=== PATIENT | male | born 1940 | race Caucasian/White ===

== ENCOUNTER 2021-04-06 15:03 | Inpatient (IN) | payer MEDICARE ==
[2021-04-06 15:29] VITALS: BMI 30.4
[2021-04-06] MEDS ORDERED: levETIRAcetam 250 MG TAB PO SCH (21:00)
[2021-04-06 21:55] LABS: SARS-CoV-2 NAA Rapid Test Not Detected (NotDetected)
[2021-04-06] MEDS: Midodrine HCl 5 MG TAB PO SCH (22:08)
[2021-04-06] MEDS: Atorvastatin Calcium 10 MG TAB PO SCH (22:09)
[2021-04-07] MEDS: Potassium Chloride 10 MEQ TAB PO SCH (09:12)
[2021-04-07] MEDS: Nicotine 14 MG PATCH TD SCH (09:13)
[2021-04-07] MEDS: Midodrine HCl 5 MG TAB PO SCH ×3 (09:13→21:36)
[2021-04-07] MEDS: Lidocaine 5% Patch TD SCH (09:13)
[2021-04-07] MEDS: Lisinopril 20 MG TAB PO SCH (15:21)
[2021-04-07] MEDS: Acetaminophen 500 MG TAB PO PRN (15:51)
[2021-04-07] MEDS: Tamsulosin HCl 0.4 MG CAP PO SCH (17:39)
[2021-04-07] MEDS: Atorvastatin Calcium 10 MG TAB PO SCH (21:37)
[2021-04-07] MEDS: Transdermal Patch Removal TOP SCH (21:52)
[2021-04-08] MEDS: Potassium Chloride 10 MEQ TAB PO SCH (08:59)
[2021-04-08] MEDS: Acetaminophen 500 MG TAB PO PRN (08:59)
[2021-04-08] MEDS: Lidocaine 5% Patch TD SCH (09:00)
[2021-04-08] MEDS: Nicotine 14 MG PATCH TD SCH (09:00)
[2021-04-08] MEDS: Midodrine HCl 5 MG TAB PO SCH ×3 (09:15→20:39)
[2021-04-08] MEDS: Lisinopril 20 MG TAB PO SCH (17:57)
[2021-04-08] MEDS: Tamsulosin HCl 0.4 MG CAP PO SCH (18:34)
[2021-04-08] MEDS: Atorvastatin Calcium 10 MG TAB PO SCH (20:31)
[2021-04-08] MEDS: Transdermal Patch Removal TOP SCH (20:32)
[2021-04-09] MEDS: Acetaminophen 500 MG TAB PO PRN (04:19)
[2021-04-09] MEDS: Lidocaine 5% Patch TD SCH (08:46)
[2021-04-09] MEDS: Nicotine 14 MG PATCH TD SCH (08:46)
[2021-04-09] MEDS ORDERED: Lisinopril 10 MG TAB PO SCH (09:00)
[2021-04-09] MEDS: Potassium Chloride 10 MEQ TAB PO SCH (11:31)
[2021-04-09] MEDS: Midodrine HCl 5 MG TAB PO SCH ×3 (11:32→21:12)
[2021-04-09] MEDS: Tamsulosin HCl 0.4 MG CAP PO SCH (18:03)
[2021-04-09] MEDS: oxyCODONE 5 MG TAB PO PRN (21:12)
[2021-04-09] MEDS: Transdermal Patch Removal TOP SCH (21:15)
[2021-04-10] MEDS: Potassium Chloride 10 MEQ TAB PO SCH (09:06)
[2021-04-10] MEDS: Midodrine HCl 5 MG TAB PO SCH ×3 (09:06→21:07)
[2021-04-10] MEDS: Aspirin 81 mg Enteric Coated Tablet PO SCH (09:06)
[2021-04-10] MEDS: Lidocaine 5% Patch TD SCH (09:07)
[2021-04-10] MEDS: Nicotine 14 MG PATCH TD SCH (09:07)
[2021-04-10] MEDS: Tamsulosin HCl 0.4 MG CAP PO SCH (17:46)
[2021-04-10] MEDS: Transdermal Patch Removal TOP SCH (21:07)
[2021-04-11] MEDS: Midodrine HCl 5 MG TAB PO SCH ×3 (10:00→21:23)
[2021-04-11] MEDS: Aspirin 81 mg Enteric Coated Tablet PO SCH (10:00)
[2021-04-11] MEDS: Nicotine 14 MG PATCH TD SCH (10:00)
[2021-04-11] MEDS: Lidocaine 5% Patch TD SCH (10:01)
[2021-04-11] MEDS: Potassium Chloride 10 MEQ TAB PO SCH (10:01)
[2021-04-11] MEDS: Tamsulosin HCl 0.4 MG CAP PO SCH (17:53)
[2021-04-11] MEDS: Transdermal Patch Removal TOP SCH (21:23)
[2021-04-12] MEDS: oxyCODONE 5 MG TAB PO PRN (06:26)
[2021-04-12] MEDS: Nicotine 14 MG PATCH TD SCH (08:58)
[2021-04-12] MEDS: Potassium Chloride 10 MEQ TAB PO SCH (08:58)
[2021-04-12] MEDS: Lidocaine 5% Patch TD SCH (08:58)
[2021-04-12] MEDS: Aspirin 81 mg Enteric Coated Tablet PO SCH (08:59)
[2021-04-12] MEDS: Midodrine HCl 5 MG TAB PO SCH ×3 (08:59→20:34)
[2021-04-12] MEDS: Tamsulosin HCl 0.4 MG CAP PO SCH (17:03)
[2021-04-12] MEDS: Transdermal Patch Removal TOP SCH (20:35)
[2021-04-12] MEDS: hydrOXYzine 25 MG TAB PO SCH (20:35)
[2021-04-13] MEDS: Midodrine HCl 5 MG TAB PO SCH ×3 (08:51→20:57)
[2021-04-13] MEDS: Aspirin 81 mg Enteric Coated Tablet PO SCH (08:52)
[2021-04-13] MEDS: Nicotine 14 MG PATCH TD SCH (08:52)
[2021-04-13] MEDS: Potassium Chloride 10 MEQ TAB PO SCH (08:52)
[2021-04-13] MEDS: Lidocaine 5% Patch TD SCH (08:52)
[2021-04-13] MEDS: Tamsulosin HCl 0.4 MG CAP PO SCH (18:00)
[2021-04-13] MEDS: hydrOXYzine 25 MG TAB PO SCH (20:57)
[2021-04-13] MEDS: Transdermal Patch Removal TOP SCH (21:07)
[2021-04-14 01:21] LABS: SARS-CoV-2 PCR by NAA Not Detected (NotDetected)
[2021-04-14] MEDS: oxyCODONE 5 MG TAB PO PRN ×2 (04:49→20:38)
[2021-04-14] MEDS: Midodrine HCl 5 MG TAB PO SCH ×3 (08:44→20:30)
[2021-04-14] MEDS: Potassium Chloride 10 MEQ TAB PO SCH (08:44)
[2021-04-14] MEDS: Aspirin 81 mg Enteric Coated Tablet PO SCH (08:45)
[2021-04-14] MEDS: Nicotine 14 MG PATCH TD SCH (08:45)
[2021-04-14] MEDS: Lidocaine 5% Patch TD SCH (08:45)
[2021-04-14] MEDS: Tamsulosin HCl 0.4 MG CAP PO SCH (18:45)
[2021-04-14] MEDS: hydrOXYzine 25 MG TAB PO SCH (20:31)
[2021-04-14] MEDS: Transdermal Patch Removal TOP SCH (20:31)
[2021-04-15] MEDS: Potassium Chloride 10 MEQ TAB PO SCH (08:52)
[2021-04-15] MEDS: Lidocaine 5% Patch TD SCH (08:52)
[2021-04-15] MEDS: Midodrine HCl 5 MG TAB PO SCH ×3 (08:52→20:23)
[2021-04-15] MEDS: Aspirin 81 mg Enteric Coated Tablet PO SCH (08:52)
[2021-04-15] MEDS: Nicotine 14 MG PATCH TD SCH (08:53)
[2021-04-15] MEDS: Acetaminophen 500 MG TAB PO PRN (08:56)
[2021-04-15 10:52] LABS: #Basophils 0.1 thou/uL (0.0-0.2); #Eosinphils 0.1 thou/uL (0.0-0.7); #Lymphocytes 2.8 thou/uL (1.20-3.40); #Monocytes 1.1 thou/uL (0.11-0.59); #Neutrophils 4.5 thou/uL (1.40-6.50); %Basophils 0.9 % (0.0-1.0); %Eosinophils 1.6 % (0.0-10.0); %Lymphocytes 33.1 % (21.0-51.0); %Monocytes 12.6 % (0.0-10.0); %Neutrophils 51.8 % (42.0-75.0); Hemoglobin 13.7 g/dL (14.0-18.0); Mean Corpuscular HGB CONC 32.7 g/dL (32.0-36.0); Mean Corpuscular Hemoglobin 30.4 pg (27.0-31.0); Mean Corpuscular Volume 93.2 fL (78.0-98.0); Mean Platelet Volume 8.5 fL (7.4-10.4); Platelet Count 202 thou/uL (130-400); RBC Distribution Width 14.6 % (11.5-14.5); Red Blood Cell (RBC) Count 4.49 mill/uL (4.70-6.10); White Blood Cell (WBC) Count 8.6 thou/uL (4.8-10.8)
[2021-04-15 11:05] LABS: ALT (SGPT) 15 U/L (8-55); AST (SGOT) 16 U/L (5-34); Albumin 3.5 g/dL (3.4-4.8); Alkaline Phosphatase 68 U/L (40-110); Anion Gap 16 mmol/L (10-20); BUN (Urea Nitrogen) 24 mg/dL (8.4-25.7); Bilirubin, Total 0.4 mg/dL (0.2-1.2); Calc. Creatinine Clearance 69 mL/min (70-130); Calcium 9.5 mg/dL (7.8-10.44); Carbon Dioxide 25 mmol/L (23-31); Chloride 102 mmol/L (98-107); Globulin 3.2 g/dL (2.4-3.5); Glucose 103 mg/dL (83-110); Potassium 4.1 mmol/L (3.5-5.1); Protein, Total 6.7 g/dL (5.8-8.1); Sodium 139 mmol/L (136-145)
[2021-04-15] MEDS: Tamsulosin HCl 0.4 MG CAP PO SCH (17:51)
[2021-04-15] MEDS: traZODone HCl 50 MG TAB PO SCH (20:22)
[2021-04-15] MEDS: hydrOXYzine 25 MG TAB PO SCH (20:23)
[2021-04-15] MEDS: Transdermal Patch Removal TOP SCH (20:29)
[2021-04-16] MEDS: Midodrine HCl 5 MG TAB PO SCH ×3 (08:36→20:14)
[2021-04-16] MEDS: Nicotine 14 MG PATCH TD SCH (08:36)
[2021-04-16] MEDS: Lidocaine 5% Patch TD SCH (08:36)
[2021-04-16] MEDS: Potassium Chloride 10 MEQ TAB PO SCH (08:37)
[2021-04-16] MEDS: Aspirin 81 mg Enteric Coated Tablet PO SCH (08:37)
[2021-04-16] MEDS: Acetaminophen 500 MG TAB PO PRN (08:40)
[2021-04-16] MEDS: Polyethylene Glycol 3350 17 GM Packet PO PRN (09:53)
[2021-04-16] MEDS: Tamsulosin HCl 0.4 MG CAP PO SCH (18:00)
[2021-04-16] MEDS: traZODone HCl 50 MG TAB PO SCH (20:14)
[2021-04-16] MEDS: hydrOXYzine 25 MG TAB PO SCH (20:14)
[2021-04-16] MEDS: Transdermal Patch Removal TOP SCH (20:22)
[2021-04-17] MEDS: Acetaminophen 500 MG TAB PO PRN ×2 (08:22→20:40)
[2021-04-17] MEDS: Nicotine 14 MG PATCH TD SCH (08:24)
[2021-04-17] MEDS: Aspirin 81 mg Enteric Coated Tablet PO SCH (08:24)
[2021-04-17] MEDS: Potassium Chloride 10 MEQ TAB PO SCH (08:24)
[2021-04-17] MEDS: Midodrine HCl 5 MG TAB PO SCH ×3 (08:24→20:40)
[2021-04-17] MEDS: Lidocaine 5% Patch TD SCH (08:25)
[2021-04-17] MEDS: Tamsulosin HCl 0.4 MG CAP PO SCH (17:28)
[2021-04-17] MEDS: traZODone HCl 50 MG TAB PO SCH (20:39)
[2021-04-17] MEDS: hydrOXYzine 25 MG TAB PO SCH (20:40)
[2021-04-17] MEDS: Transdermal Patch Removal TOP SCH (20:46)
[2021-04-18] MEDS: Midodrine HCl 5 MG TAB PO SCH ×3 (08:26→21:44)
[2021-04-18] MEDS: Potassium Chloride 10 MEQ TAB PO SCH (08:26)
[2021-04-18] MEDS: Aspirin 81 mg Enteric Coated Tablet PO SCH (08:26)
[2021-04-18] MEDS: Lidocaine 5% Patch TD SCH (08:26)
[2021-04-18] MEDS: Acetaminophen 500 MG TAB PO PRN (08:33)
[2021-04-18] MEDS: Nicotine 14 MG PATCH TD SCH (08:36)
[2021-04-18] MEDS: Tamsulosin HCl 0.4 MG CAP PO SCH (18:36)
[2021-04-18] MEDS: hydrOXYzine 25 MG TAB PO SCH (21:44)
[2021-04-18] MEDS: Transdermal Patch Removal TOP SCH (21:45)
[2021-04-18] MEDS: traZODone HCl 50 MG TAB PO SCH (21:45)
[2021-04-19] MEDS: Acetaminophen 500 MG TAB PO PRN (02:35)
[2021-04-19] MEDS: oxyCODONE 5 MG TAB PO PRN (08:25)
[2021-04-19] MEDS: Polyethylene Glycol 3350 17 GM Packet PO PRN (08:27)
[2021-04-19] MEDS: Lidocaine 5% Patch TD SCH (08:27)
[2021-04-19] MEDS: Midodrine HCl 5 MG TAB PO SCH ×3 (08:29→21:58)
[2021-04-19] MEDS: Aspirin 81 mg Enteric Coated Tablet PO SCH (08:30)
[2021-04-19] MEDS: Potassium Chloride 10 MEQ TAB PO SCH (08:30)
[2021-04-19] MEDS: Nicotine 14 MG PATCH TD SCH (08:31)
[2021-04-19] MEDS: Tamsulosin HCl 0.4 MG CAP PO SCH (17:31)
[2021-04-19] MEDS: traZODone HCl 50 MG TAB PO SCH (21:58)
[2021-04-19] MEDS: hydrOXYzine 25 MG TAB PO SCH (21:58)
[2021-04-19] MEDS: Transdermal Patch Removal TOP SCH (21:59)
[2021-04-20] MEDS: Potassium Chloride 10 MEQ TAB PO SCH (09:08)
[2021-04-20] MEDS: Lidocaine 5% Patch TD SCH (09:08)
[2021-04-20] MEDS: Nicotine 14 MG PATCH TD SCH (09:08)
[2021-04-20] MEDS: Acetaminophen 500 MG TAB PO PRN ×2 (09:09→19:33)
[2021-04-20] MEDS: Aspirin 81 mg Enteric Coated Tablet PO SCH (09:09)
[2021-04-20] MEDS: Midodrine HCl 5 MG TAB PO SCH ×3 (09:09→21:24)
[2021-04-20] MEDS: Polyethylene Glycol 3350 17 GM Packet PO PRN (09:16)
[2021-04-20] MEDS: Tamsulosin HCl 0.4 MG CAP PO SCH (17:46)
[2021-04-20] MEDS: hydrOXYzine 25 MG TAB PO SCH (21:25)
[2021-04-20] MEDS: Transdermal Patch Removal TOP SCH (21:25)
[2021-04-20] MEDS: traZODone HCl 50 MG TAB PO SCH (21:25)
[2021-04-21] MEDS: Lidocaine 5% Patch TD SCH (08:40)
[2021-04-21] MEDS: Midodrine HCl 5 MG TAB PO SCH ×3 (08:40→21:35)
[2021-04-21] MEDS: Potassium Chloride 10 MEQ TAB PO SCH (08:40)
[2021-04-21] MEDS: Aspirin 81 mg Enteric Coated Tablet PO SCH (08:40)
[2021-04-21] MEDS: Nicotine 14 MG PATCH TD SCH (08:40)
[2021-04-21] MEDS: Acetaminophen 500 MG TAB PO PRN (08:44)
[2021-04-21] MEDS: Tamsulosin HCl 0.4 MG CAP PO SCH (18:42)
[2021-04-21] MEDS: traZODone HCl 50 MG TAB PO SCH (21:35)
[2021-04-21] MEDS: Transdermal Patch Removal TOP SCH (21:35)
[2021-04-21] MEDS: hydrOXYzine 25 MG TAB PO SCH (21:35)
[2021-04-22] MEDS: Midodrine HCl 5 MG TAB PO SCH ×3 (09:30→20:26)
[2021-04-22] MEDS: Aspirin 81 mg Enteric Coated Tablet PO SCH (09:30)
[2021-04-22] MEDS: Potassium Chloride 10 MEQ TAB PO SCH (09:30)
[2021-04-22] MEDS: Lidocaine 5% Patch TD SCH (09:30)
[2021-04-22] MEDS: Nicotine 14 MG PATCH TD SCH (09:31)
[2021-04-22 16:00] LABS: SARS-CoV-2 PCR by NAA Not Detected (NotDetected)
[2021-04-22] MEDS: Tamsulosin HCl 0.4 MG CAP PO SCH (17:42)
[2021-04-22] MEDS: hydrOXYzine 25 MG TAB PO SCH (20:26)
[2021-04-22] MEDS: traZODone HCl 50 MG TAB PO SCH (20:26)
[2021-04-22] MEDS: Transdermal Patch Removal TOP SCH (20:38)
[2021-04-23] MEDS: Acetaminophen 500 MG TAB PO PRN ×2 (01:12→10:02)
[2021-04-23] MEDS: Nicotine 14 MG PATCH TD SCH (08:56)
[2021-04-23] MEDS: Lidocaine 5% Patch TD SCH (08:56)
[2021-04-23] MEDS: Aspirin 81 mg Enteric Coated Tablet PO SCH (08:56)
[2021-04-23] MEDS: Midodrine HCl 5 MG TAB PO SCH ×3 (08:57→21:30)
[2021-04-23] MEDS: Potassium Chloride 10 MEQ TAB PO SCH (08:57)
[2021-04-23] MEDS: Tamsulosin HCl 0.4 MG CAP PO SCH (17:59)
[2021-04-23] MEDS: traZODone HCl 50 MG TAB PO SCH (21:29)
[2021-04-23] MEDS: hydrOXYzine 25 MG TAB PO SCH (21:29)
[2021-04-23] MEDS: Transdermal Patch Removal TOP SCH (21:30)
[2021-04-24] MEDS: Acetaminophen 500 MG TAB PO PRN ×2 (01:42→09:22)
[2021-04-24] MEDS: Aspirin 81 mg Enteric Coated Tablet PO SCH (09:21)
[2021-04-24] MEDS: Potassium Chloride 10 MEQ TAB PO SCH (09:22)
[2021-04-24] MEDS: Midodrine HCl 5 MG TAB PO SCH ×3 (09:23→21:27)
[2021-04-24] MEDS: Lidocaine 5% Patch TD SCH (09:23)
[2021-04-24] MEDS: Nicotine 14 MG PATCH TD SCH (09:23)
[2021-04-24] MEDS: Tamsulosin HCl 0.4 MG CAP PO SCH (17:31)
[2021-04-24] MEDS: traZODone HCl 50 MG TAB PO SCH (21:26)
[2021-04-24] MEDS: Transdermal Patch Removal TOP SCH (21:27)
[2021-04-24] MEDS: hydrOXYzine 25 MG TAB PO SCH (21:27)
[2021-04-25] MEDS: Aspirin 81 mg Enteric Coated Tablet PO SCH (09:16)
[2021-04-25] MEDS: Potassium Chloride 10 MEQ TAB PO SCH (09:16)
[2021-04-25] MEDS: Midodrine HCl 5 MG TAB PO SCH ×3 (09:16→21:06)
[2021-04-25] MEDS: Lidocaine 5% Patch TD SCH (09:17)
[2021-04-25] MEDS: Nicotine 14 MG PATCH TD SCH (09:17)
[2021-04-25] MEDS: Tamsulosin HCl 0.4 MG CAP PO SCH (18:17)
[2021-04-25] MEDS: traZODone HCl 50 MG TAB PO SCH (21:06)
[2021-04-25] MEDS: Transdermal Patch Removal TOP SCH (21:07)
[2021-04-25] MEDS: hydrOXYzine 25 MG TAB PO SCH (21:07)
[2021-04-26] MEDS: Loratadine 10 MG TAB PO SCH (09:06)
[2021-04-26] MEDS: Midodrine HCl 5 MG TAB PO SCH ×3 (09:06→21:21)
[2021-04-26] MEDS: Potassium Chloride 10 MEQ TAB PO SCH (09:06)
[2021-04-26] MEDS: Nicotine 14 MG PATCH TD SCH (09:07)
[2021-04-26] MEDS: Lidocaine 5% Patch TD SCH (09:07)
[2021-04-26] MEDS: Aspirin 81 mg Enteric Coated Tablet PO SCH (09:07)
[2021-04-26] MEDS: Acetaminophen 500 MG TAB PO PRN (15:40)
[2021-04-26] MEDS: Tamsulosin HCl 0.4 MG CAP PO SCH (17:51)
[2021-04-26] MEDS: hydrOXYzine 25 MG TAB PO SCH (21:21)
[2021-04-26] MEDS: traZODone HCl 50 MG TAB PO SCH (21:21)
[2021-04-26] MEDS: Transdermal Patch Removal TOP SCH (21:21)
[2021-04-27] MEDS: Nicotine 14 MG PATCH TD SCH (08:28)
[2021-04-27] MEDS: Aspirin 81 mg Enteric Coated Tablet PO SCH (08:28)
[2021-04-27] MEDS: Potassium Chloride 10 MEQ TAB PO SCH (08:28)
[2021-04-27] MEDS: Lidocaine 5% Patch TD SCH (08:29)
[2021-04-27] MEDS: Loratadine 10 MG TAB PO SCH (08:29)
[2021-04-27] MEDS: Midodrine HCl 5 MG TAB PO SCH ×3 (08:29→21:11)
[2021-04-27] MEDS: Tamsulosin HCl 0.4 MG CAP PO SCH (17:16)
[2021-04-27] MEDS: hydrOXYzine 25 MG TAB PO SCH (21:11)
[2021-04-27] MEDS: traZODone HCl 50 MG TAB PO SCH (21:11)
[2021-04-27] MEDS: Transdermal Patch Removal TOP SCH (21:11)
[2021-04-28] MEDS: Potassium Chloride 10 MEQ TAB PO SCH (08:21)
[2021-04-28] MEDS: Loratadine 10 MG TAB PO SCH (08:22)
[2021-04-28] MEDS: Aspirin 81 mg Enteric Coated Tablet PO SCH (08:22)
[2021-04-28] MEDS: Nicotine 14 MG PATCH TD SCH (08:22)
[2021-04-28] MEDS: Lidocaine 5% Patch TD SCH (08:22)
[2021-04-28] MEDS: Midodrine HCl 5 MG TAB PO SCH ×3 (08:22→20:13)
[2021-04-28] MEDS: Acetaminophen 500 MG TAB PO PRN (12:16)
[2021-04-28] MEDS: Tamsulosin HCl 0.4 MG CAP PO SCH (17:28)
[2021-04-28] MEDS: hydrOXYzine 25 MG TAB PO SCH (20:13)
[2021-04-28] MEDS: traZODone HCl 50 MG TAB PO SCH (20:13)
[2021-04-28] MEDS: Transdermal Patch Removal TOP SCH (20:15)
[2021-04-29] MEDS: Aspirin 81 mg Enteric Coated Tablet PO SCH (08:26)
[2021-04-29] MEDS: Lidocaine 5% Patch TD SCH (08:27)
[2021-04-29] MEDS: Nicotine 14 MG PATCH TD SCH (08:27)
[2021-04-29] MEDS: Loratadine 10 MG TAB PO SCH (08:27)
[2021-04-29] MEDS: Potassium Chloride 10 MEQ TAB PO SCH (08:27)
[2021-04-29] MEDS: Midodrine HCl 5 MG TAB PO SCH ×3 (08:27→22:27)
[2021-04-29] MEDS: Tamsulosin HCl 0.4 MG CAP PO SCH (17:22)
[2021-04-29] MEDS: traZODone HCl 50 MG TAB PO SCH (22:27)
[2021-04-29] MEDS: hydrOXYzine 25 MG TAB PO SCH (22:27)
[2021-04-29] MEDS: Transdermal Patch Removal TOP SCH (22:28)
[2021-04-30] MEDS: Potassium Chloride 10 MEQ TAB PO SCH (08:45)
[2021-04-30] MEDS: Nicotine 14 MG PATCH TD SCH (08:45)
[2021-04-30] MEDS: Midodrine HCl 5 MG TAB PO SCH ×3 (08:45→21:08)
[2021-04-30] MEDS: Lidocaine 5% Patch TD SCH (08:45)
[2021-04-30] MEDS: Aspirin 81 mg Enteric Coated Tablet PO SCH (08:45)
[2021-04-30] MEDS: Loratadine 10 MG TAB PO SCH (08:45)
[2021-04-30] MEDS: Tamsulosin HCl 0.4 MG CAP PO SCH (17:29)
[2021-04-30] MEDS: traZODone HCl 50 MG TAB PO SCH (21:09)
[2021-04-30] MEDS: Transdermal Patch Removal TOP SCH (21:09)
[2021-04-30] MEDS: hydrOXYzine 25 MG TAB PO SCH (21:09)
[2021-05-01] MEDS: Nicotine 14 MG PATCH TD SCH (09:36)
[2021-05-01] MEDS: Lidocaine 5% Patch TD SCH (09:36)
[2021-05-01] MEDS: Aspirin 81 mg Enteric Coated Tablet PO SCH (09:37)
[2021-05-01] MEDS: Midodrine HCl 5 MG TAB PO SCH ×3 (09:37→21:02)
[2021-05-01] MEDS: Potassium Chloride 10 MEQ TAB PO SCH (09:37)
[2021-05-01] MEDS: Loratadine 10 MG TAB PO SCH (09:38)
[2021-05-01] MEDS: Tamsulosin HCl 0.4 MG CAP PO SCH (18:21)
[2021-05-01 19:50] LABS: SARS-CoV-2 PCR by NAA Not Detected (NotDetected)
[2021-05-01] MEDS: hydrOXYzine 25 MG TAB PO SCH (21:02)
[2021-05-01] MEDS: traZODone HCl 50 MG TAB PO SCH (21:02)
[2021-05-01] MEDS: Transdermal Patch Removal TOP SCH (23:12)
[2021-05-02] MEDS: Potassium Chloride 10 MEQ TAB PO SCH (09:06)
[2021-05-02] MEDS: Lidocaine 5% Patch TD SCH (09:07)
[2021-05-02] MEDS: Aspirin 81 mg Enteric Coated Tablet PO SCH (09:07)
[2021-05-02] MEDS: Midodrine HCl 5 MG TAB PO SCH ×3 (09:07→21:00)
[2021-05-02] MEDS: Nicotine 14 MG PATCH TD SCH (09:07)
[2021-05-02] MEDS: Loratadine 10 MG TAB PO SCH (09:07)
[2021-05-02] MEDS: Tamsulosin HCl 0.4 MG CAP PO SCH (18:48)
[2021-05-02] MEDS: traZODone HCl 50 MG TAB PO SCH (21:00)
[2021-05-02] MEDS: hydrOXYzine 25 MG TAB PO SCH (21:00)
[2021-05-02] MEDS: Transdermal Patch Removal TOP SCH (21:01)
[2021-05-02] MEDS: Acetaminophen 500 MG TAB PO PRN (21:16)
[2021-05-03] MEDS: Midodrine HCl 5 MG TAB PO SCH ×3 (08:38→20:26)
[2021-05-03] MEDS: Aspirin 81 mg Enteric Coated Tablet PO SCH (08:38)
[2021-05-03] MEDS: Lidocaine 5% Patch TD SCH (08:38)
[2021-05-03] MEDS: Potassium Chloride 10 MEQ TAB PO SCH (08:39)
[2021-05-03] MEDS: Nicotine 14 MG PATCH TD SCH (08:39)
[2021-05-03] MEDS: Tamsulosin HCl 0.4 MG CAP PO SCH (18:00)
[2021-05-03] MEDS: hydrOXYzine 25 MG TAB PO SCH (20:18)
[2021-05-03] MEDS: traZODone HCl 50 MG TAB PO SCH (20:18)
[2021-05-03] MEDS: Transdermal Patch Removal TOP SCH (20:18)
[2021-05-04] MEDS: Aspirin 81 mg Enteric Coated Tablet PO SCH (08:30)
[2021-05-04] MEDS: Potassium Chloride 10 MEQ TAB PO SCH (08:30)
[2021-05-04] MEDS: Lidocaine 5% Patch TD SCH (08:30)
[2021-05-04] MEDS: Midodrine HCl 5 MG TAB PO SCH ×3 (08:30→21:29)
[2021-05-04] MEDS: Nicotine 14 MG PATCH TD SCH (08:30)
[2021-05-04] MEDS: Acetaminophen 500 MG TAB PO PRN (08:47)
[2021-05-04] MEDS: Tamsulosin HCl 0.4 MG CAP PO SCH (18:04)
[2021-05-04] MEDS: traZODone HCl 50 MG TAB PO SCH (21:24)
[2021-05-04] MEDS: hydrOXYzine 25 MG TAB PO SCH (21:24)
[2021-05-04] MEDS: Transdermal Patch Removal TOP SCH (21:29)
[2021-05-05] MEDS: Lidocaine 5% Patch TD SCH (09:54)
[2021-05-05] MEDS: Nicotine 14 MG PATCH TD SCH (09:54)
[2021-05-05] MEDS: Aspirin 81 mg Enteric Coated Tablet PO SCH (09:54)
[2021-05-05] MEDS: Midodrine HCl 5 MG TAB PO SCH ×3 (09:54→22:00)
[2021-05-05] MEDS: Potassium Chloride 10 MEQ TAB PO SCH (09:55)
[2021-05-05] MEDS: Tamsulosin HCl 0.4 MG CAP PO SCH (17:54)
[2021-05-05] MEDS: hydrOXYzine 25 MG TAB PO SCH (21:59)
[2021-05-05] MEDS: traZODone HCl 50 MG TAB PO SCH (22:00)
[2021-05-05] MEDS: Transdermal Patch Removal TOP SCH (22:03)
[2021-05-06] MEDS: Potassium Chloride 10 MEQ TAB PO SCH (08:47)
[2021-05-06] MEDS: Lidocaine 5% Patch TD SCH (08:47)
[2021-05-06] MEDS: Aspirin 81 mg Enteric Coated Tablet PO SCH (08:47)
[2021-05-06] MEDS: Nicotine 14 MG PATCH TD SCH (08:47)
[2021-05-06] MEDS: Midodrine HCl 5 MG TAB PO SCH ×3 (09:37→22:05)
[2021-05-06] MEDS: Tamsulosin HCl 0.4 MG CAP PO SCH (18:39)
[2021-05-06] MEDS: hydrOXYzine 25 MG TAB PO SCH (22:05)
[2021-05-06] MEDS: traZODone HCl 50 MG TAB PO SCH (22:05)
[2021-05-06] MEDS: Transdermal Patch Removal TOP SCH (22:06)
[2021-05-07] MEDS: Aspirin 81 mg Enteric Coated Tablet PO SCH (09:37)
[2021-05-07] MEDS: Potassium Chloride 10 MEQ TAB PO SCH (09:37)
[2021-05-07] MEDS: Fludrocortisone Acetate 0.1 MG TAB PO SCH (09:37)
[2021-05-07] MEDS: Midodrine HCl 5 MG TAB PO SCH ×3 (09:37→23:06)
[2021-05-07] MEDS: Lidocaine 5% Patch TD SCH (09:37)
[2021-05-07] MEDS: Nicotine 14 MG PATCH TD SCH (09:37)
[2021-05-07] MEDS: Tamsulosin HCl 0.4 MG CAP PO SCH (17:33)
[2021-05-07] MEDS: traZODone HCl 50 MG TAB PO SCH (23:07)
[2021-05-07] MEDS: hydrOXYzine 25 MG TAB PO SCH (23:07)
[2021-05-07] MEDS: Transdermal Patch Removal TOP SCH (23:07)
[2021-05-08] MEDS: Acetaminophen 500 MG TAB PO PRN (09:36)
[2021-05-08] MEDS: Midodrine HCl 5 MG TAB PO SCH ×3 (09:37→22:13)
[2021-05-08] MEDS: Potassium Chloride 10 MEQ TAB PO SCH (09:37)
[2021-05-08] MEDS: Fludrocortisone Acetate 0.1 MG TAB PO SCH (09:38)
[2021-05-08] MEDS: Lidocaine 5% Patch TD SCH (09:38)
[2021-05-08] MEDS: Aspirin 81 mg Enteric Coated Tablet PO SCH (09:38)
[2021-05-08] MEDS: Nicotine 14 MG PATCH TD SCH (09:38)
[2021-05-08] MEDS: Tamsulosin HCl 0.4 MG CAP PO SCH (18:50)
[2021-05-08] MEDS: hydrOXYzine 25 MG TAB PO SCH (22:14)
[2021-05-08] MEDS: Transdermal Patch Removal TOP SCH (22:15)
[2021-05-08] MEDS: traZODone HCl 50 MG TAB PO SCH (22:16)
[2021-05-09] MEDS: Midodrine HCl 5 MG TAB PO SCH ×3 (09:39→20:37)
[2021-05-09] MEDS: Aspirin 81 mg Enteric Coated Tablet PO SCH (09:39)
[2021-05-09] MEDS: Fludrocortisone Acetate 0.1 MG TAB PO SCH (09:39)
[2021-05-09] MEDS: Nicotine 14 MG PATCH TD SCH (09:40)
[2021-05-09] MEDS: Potassium Chloride 10 MEQ TAB PO SCH (09:40)
[2021-05-09] MEDS: Lidocaine 5% Patch TD SCH (09:40)
[2021-05-09] MEDS: Tamsulosin HCl 0.4 MG CAP PO SCH (18:47)
[2021-05-09] MEDS ORDERED: traMADol HCl 50 MG TAB PO PRN (19:22)
[2021-05-09] MEDS: traZODone HCl 50 MG TAB PO SCH (20:37)
[2021-05-09] MEDS: hydrOXYzine 25 MG TAB PO SCH (20:37)
[2021-05-09] MEDS: Transdermal Patch Removal TOP SCH (20:39)
[2021-05-10] MEDS: Aspirin 81 mg Enteric Coated Tablet PO SCH (08:32)
[2021-05-10] MEDS: Acetaminophen 500 MG TAB PO PRN (08:32)
[2021-05-10] MEDS: Fludrocortisone Acetate 0.1 MG TAB PO SCH (08:32)
[2021-05-10] MEDS: Midodrine HCl 5 MG TAB PO SCH ×3 (08:32→21:06)
[2021-05-10] MEDS: Potassium Chloride 10 MEQ TAB PO SCH (08:32)
[2021-05-10] MEDS: Nicotine 14 MG PATCH TD SCH (08:33)
[2021-05-10] MEDS: Lidocaine 5% Patch TD SCH (08:33)
[2021-05-10] MEDS: Tamsulosin HCl 0.4 MG CAP PO SCH (17:42)
[2021-05-10] MEDS: Transdermal Patch Removal TOP SCH (21:06)
[2021-05-10] MEDS: hydrOXYzine 25 MG TAB PO SCH (21:06)
[2021-05-10] MEDS: traZODone HCl 50 MG TAB PO SCH (21:06)
[2021-05-11 05:52] VITALS: TEMP 97.6
[2021-05-11] MEDS: Lidocaine 5% Patch TD SCH (08:21)
[2021-05-11] MEDS: Aspirin 81 mg Enteric Coated Tablet PO SCH (08:21)
[2021-05-11] MEDS: Nicotine 14 MG PATCH TD SCH (08:21)
[2021-05-11] MEDS: Potassium Chloride 10 MEQ TAB PO SCH (08:21)
[2021-05-11] MEDS: Fludrocortisone Acetate 0.1 MG TAB PO SCH (08:25)
[2021-05-11] MEDS: Midodrine HCl 5 MG TAB PO SCH (08:25)
[2021-05-11 08:27] VITALS: BP 132/79
== END 2021-05-11 10:42 | DRG 561 ==
LOC: BURMED 15:03
PROVIDERS: ADMIT Family Medicine; ATTEND Family Medicine
DX: S22.028D Other fracture of second thoracic vertebra, subsequent encounter for fracture with routine healing (principal); R53.1 Weakness; I10 Essential (primary) hypertension; M54.9 Dorsalgia, unspecified; E78.5 Hyperlipidemia, unspecified; N40.0 Benign prostatic hyperplasia without lower urinary tract symptoms; G89.29 Other chronic pain; S00.412A Abrasion of left ear, initial encounter; W19.XXXD Unspecified fall, subsequent encounter; Z20.822 Contact with and (suspected) exposure to COVID-19; I95.9 Hypotension, unspecified; R00.1 Bradycardia, unspecified; S12.110D Anterior displaced Type II dens fracture, subsequent encounter for fracture with routine healing; Z98.890 Other specified postprocedural states; Z87.891 Personal history of nicotine dependence; Z79.899 Other long term (current) drug therapy
CPT/HCPCS: 36415; 36416; 72040; 72125; 72128; 80053; 84484; 85025; U0002; U0003; U0005

== ENCOUNTER 2021-06-29 14:48 | Emergency (ER) | payer MEDICARE ==
[2021-06-29 15:42] LABS: #Basophils 0.1 thou/uL (0.0-0.2); #Eosinphils 0.2 thou/uL (0.0-0.7); #Lymphocytes 1.5 thou/uL (1.20-3.40); #Monocytes 0.4 thou/uL (0.11-0.59); #Neutrophils 2.7 thou/uL (1.40-6.50); %Basophils 1.4 % (0.0-1.0); %Eosinophils 3.3 % (0.0-10.0); %Lymphocytes 31.2 % (21.0-51.0); %Monocytes 8.3 % (0.0-10.0); %Neutrophils 55.9 % (42.0-75.0); Hemoglobin 10.8 g/dL (14.0-18.0); Mean Corpuscular HGB CONC 32.3 g/dL (32.0-36.0); Mean Corpuscular Hemoglobin 30.5 pg (27.0-31.0); Mean Corpuscular Volume 94.6 fL (78.0-98.0); Mean Platelet Volume 8.2 fL (7.4-10.4); Platelet Count 212 thou/uL (130-400); RBC Distribution Width 14.3 % (11.5-14.5); Red Blood Cell (RBC) Count 3.55 mill/uL (4.70-6.10); White Blood Cell (WBC) Count 4.9 thou/uL (4.8-10.8)
[2021-06-29 15:49] LABS: Bilirubin Negative (Negative); Blood, Urine Negative (Negative); Clarity Cloudy (Clear); Glucose, Urine (Dipstick) Negative (Negative); Ketone, Urine Negative (Negative); Leukocyte Negative (Negative); Nitrite Negative (Negative); Protein, Urine (Dipstick) Negative (Neg-Trace); pH, Urine 7.5 (5.0-9.0)
[2021-06-29 15:56] LABS: ALT (SGPT) Less than 7 U/L (8-55); AST (SGOT) 10 U/L (5-34); Albumin 3.3 g/dL (3.4-4.8); Alkaline Phosphatase 71 U/L (40-110); Anion Gap 12 mmol/L (10-20); BUN (Urea Nitrogen) 14 mg/dL (8.4-25.7); Bilirubin, Total 0.3 mg/dL (0.2-1.2); Calc. Creatinine Clearance 0 mL/min (70-130); Calcium 9.2 mg/dL (7.8-10.44); Carbon Dioxide 26 mmol/L (23-31); Chloride 107 mmol/L (98-107); Globulin 2.7 g/dL (2.4-3.5); Glucose 113 mg/dL (83-110); Magnesium 2.2 mg/dL (1.6-2.6); Potassium 3.9 mmol/L (3.5-5.1); Sodium 141 mmol/L (136-145)
== END 2021-06-29 16:32 ==
LOC: BURERS 14:48
DX: R41.0 Disorientation, unspecified (principal); I95.9 Hypotension, unspecified; E78.5 Hyperlipidemia, unspecified; Z79.899 Other long term (current) drug therapy; Z87.891 Personal history of nicotine dependence
CPT/HCPCS: 36415; 51701; 70450; 71045; 72125; 80053; 81003; 83605; 83735; 84443; 84484; 85025; 87040; 93005; 94760

== ENCOUNTER 2021-06-30 05:23 | Emergency (ER) | payer MEDICARE | END 2021-06-30 06:08 | LOC: BURERS 05:23 | DX: S30.0XXA Contusion of lower back and pelvis, initial encounter (principal); S40.022A Contusion of left upper arm, initial encounter; Z79.899 Other long term (current) drug therapy; I95.9 Hypotension, unspecified; E87.1 Hypo-osmolality and hyponatremia; E78.5 Hyperlipidemia, unspecified; Z87.891 Personal history of nicotine dependence; W18.30XA Fall on same level, unspecified, initial encounter | CPT/HCPCS: 72170 ==

== ENCOUNTER 2021-08-23 12:40 | Emergency (ER) | payer MEDICARE | END 2021-08-23 14:40 | disposition home or self-care (01) | LOC: BURERS 12:40 | DX: S40.011A Contusion of right shoulder, initial encounter (principal); W06.XXXA Fall from bed, initial encounter; E78.5 Hyperlipidemia, unspecified; E78.00 Pure hypercholesterolemia, unspecified; I95.9 Hypotension, unspecified; Z79.899 Other long term (current) drug therapy | CPT/HCPCS: 99283 ==